=== PATIENT | male | born 1950 | race Caucasian/White ===

== ENCOUNTER → 2017-05-02 | Outpatient (CLI) | payer OTHER | END | disposition home or self-care (01) | LOC: RAD 12:01 | PROVIDERS: ATTEND Internal Medicine | DX: R41.0 Disorientation, unspecified (principal); R51 Headache; I65.23 Occlusion and stenosis of bilateral carotid arteries | CPT/HCPCS: 70551 ==

== ENCOUNTER 2018-03-13 08:50 | Outpatient (CLI) | payer OTHER | END 2018-03-13 23:59 | disposition home or self-care (01) | LOC: RAD 08:50 | PROVIDERS: ATTEND Internal Medicine | DX: M48.02 Spinal stenosis, cervical region (principal); M51.36 Other intervertebral disc degeneration, lumbar region; M48.07 Spinal stenosis, lumbosacral region; M50.20 Other cervical disc displacement, unspecified cervical region | CPT/HCPCS: 72141; 72148 ==

== ENCOUNTER 2018-04-03 16:19 | Emergency (ER) | payer OTHER ==
[~2018-04-03] VITALS: Ht 175.3 cm; Wt 116.0 kg
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
--- NOTE | 2018-04-03 16:41 | NUR ---
X RAY AT BEDSIDE.
--- NOTE | 2018-04-03 16:46 | NUR ---
PT TAKEN TO CT.
[2018-04-03] MEDS ORDERED: MECLIZINE CHEWABLE 25 MG TAB PO ONE (17:00)
[2018-04-03] MEDS ORDERED: MECLIZINE CHEWABLE 25 MG TAB ONE (17:03)
--- NOTE | 2018-04-03 17:05 | NUR ---
LAB AT BEDSIDE.
[2018-04-03 17:24] LABS: MICROSCOPIC AUTO
[2018-04-03 17:26] LABS: CULTURE INDICATED? NO
--- NOTE | 2018-04-03 17:34 | NUR ---
Pt is sitting at the side of the bed, talking with staff, respirations equal and non labored. NAD. Pt is connected to the monitor. Call light within reach.
[2018-04-03 17:56] LABS: BASOPHILS # (AUTO) 0.05 x10^3/uL (0-0.1); BASOPHILS % (AUTO) 0 % (0-1); EOSINOPHILS # (AUTO) 0.23 x10^3/uL (0-0.4); EOSINOPHILS % (AUTO) 2 % (1-7); LYMPHOCYTES # (AUTO) 3.38 x10^3/uL (1-3.4); LYMPHOCYTES % (AUTO) 28 % (22-44); MD NO; MEAN CORPUSCULAR HEMOGLOBIN 31.3 pg (27.5-34.5); MEAN CORPUSCULAR HGB CONC 33.3 g/dL (33.2-36.2); MEAN CORPUSCULAR VOLUME 93.9 fL (81-97); MEAN PLATELET VOLUME 9.1 fL (7.4-10.4); MONOCYTES # (AUTO) 0.81 x10^3/uL (0.2-0.8); MONOCYTES % (AUTO) 7 % (2-9); NEUTROPHILS # (AUTO) 7.62 x10^3/uL (1.8-6.8); NEUTROPHILS % (AUTO) 63 % (42-75); PLATELET COUNT 270 x10^3/uL (130-400); RED BLOOD COUNT 4.77 x10^6/uL (4.38-5.82); RED CELL DISTRIBUTION WIDTH 14.4 % (9.4-14.8)
[2018-04-03 18:00] LABS: ALBUMIN 3.8 g/dL (3.4-5.0); ANION GAP 7 mmol/L (5-15); CALCIUM 9.4 mg/dL (8.5-10.1); CHLORIDE 107 mmol/L (98-107)
[2018-04-03 18:06] LABS: ALANINE AMINOTRANSFERASE 43 U/L (12-78); ALKALINE PHOSPHATASE 76 U/L (45-117); BILIRUBIN,TOTAL 0.7 mg/dL (0.2-1.0); TOTAL PROTEIN 7.1 g/dL (6.4-8.2); TROPONIN I < 0.015 ng/mL (0.000-0.045)
[2018-04-03 18:24] VITALS: BP 163/97
--- NOTE | 2018-04-03 18:25 | NUR ---
Pt is resting in bed, talking with staff, respirations equal and non labored. NAD. Pt is connected to the monitor. Call light within reach.
--- NOTE | 2018-04-03 19:05 | NUR ---
Patient given discharge instructions and they have confirmed that they understand the instructions. Patient ambulatory with steady gait.
== END 2018-04-03 19:10 ==
LOC: ED 18:45
DX: R42 Dizziness and giddiness (principal); R55 Syncope and collapse; Z87.891 Personal history of nicotine dependence
CPT/HCPCS: 36415; 70450; 71045; 80053; 81001; 84484; 85025; 93005; 99284

== ENCOUNTER 2018-08-28 12:44 | Outpatient (CLI) | payer OTHER ==
[~2018-08-28 12:44] MED LIST: GADOBUTROL 10 MMOL/10 ML VIAL ONE; GADOBUTROL 7.5 MMOL/7.5 ML VIAL ONE
== END 2018-08-28 23:59 | disposition home or self-care (01) ==
LOC: RAD 12:44
PROVIDERS: ATTEND Nurse Practitioner Acute Care
DX: M54.2 Cervicalgia (principal)
CPT/HCPCS: 70549; A9585

== ENCOUNTER → 2019-03-27 | Outpatient (CLI) | payer OTHER ==
[~2019-03-27] MED LIST changes: -GADOBUTROL 10 MMOL/10 ML VIAL ONE; -GADOBUTROL 7.5 MMOL/7.5 ML VIAL ONE; +GADOTERATE 10 MMOL/20 ML VIAL ONE
== END | disposition home or self-care (01) ==
LOC: EDSTATUS 13:00 → RAD 13:39 → EDSTATUS 14:00
PROVIDERS: ATTEND Otolaryngology
DX: R42 Dizziness and giddiness (principal); R53.1 Weakness
CPT/HCPCS: 70553; A9575

== ENCOUNTER → 2019-12-17 | Outpatient (CLI) | payer OTHER | END | disposition home or self-care (01) | LOC: RAD 12:24 | PROVIDERS: ATTEND Physical Medicine & Rehabilitation | DX: M48.02 Spinal stenosis, cervical region (principal); M25.78 Osteophyte, vertebrae; M54.12 Radiculopathy, cervical region | CPT/HCPCS: 72141 ==